=== PATIENT | female | born 1970 | race African-American/Black ===

== ENCOUNTER 2018-03-06 07:34 | Emergency (ER) | payer OTHER ==
[2018-03-06 07:49] VITALS: BP 142/72; PULSE 97; TEMP 98; BMI 34.8
--- NOTE | 2018-03-06 08:30 | PDOC ---
History of Present Illness - General Chief Complaint: Injury Stated Complaint: R KNEE INJURY Time Seen by Provider: 03/06/18 08:22 History Source: Patient Exam Limitations: Clinical Condition - History of Present Illness Initial Comments: 03/06/18 08:27 Patient with h/o HTN controlled with meds present with complains of right knee pain below right patella s/p hitting leg on bed post 2 days ago. pt report area is swollen and painful with ambulation. report take motrin which helped with the pain. Denies previous injury or trauma to area Timing/Duration: other (2 days ) Severity: moderate Modifying Factors: improves with: medication, rest. worse with: movement Associated Symptoms: reports: denies symptoms. denies: weakness Aspirin Received prior to arrival: Yes: no aspirin today Asa Contraindications(Core Measure): Yes: Allergy Past History - Past Medical History Allergies/Adverse Reactions: Allergies Allergy/AdvReac Type Severity Reaction Status Date / Time levofloxacin [From Levaquin] Allergy Verified 03/06/18 07:38 Home Medications: Ambulatory Orders Glucosamine/Chondroiti/Chiv358 [Cosamin Asu Capsule] 1 each PO DAILY #30 capsule 03/06/18 Leg Brace [Knee Brace] 1 each MC DAILY #1 each 03/06/18 Naproxen 500 mg PO BID PRN #20 tablet. 03/06/18 COPD: No HTN: Yes - Suicide/Smoking/Psychosocial Hx Smoking History: Never smoked Have you smoked in the past 12 months: No Information on smoking cessation initiated: No Hx Alcohol Use: No Drug/Substance Use Hx: No Substance Use Type: None Review of Systems - Review of Systems Able to Perform ROS?: Yes Is the patient limited Icelandic proficient: No Constitutional: No: Chills, Diaphoresis, Fever, Loss of Appetite, Malaise, Night Sweats, Weakness, Weight Stable, Unintentional Wgt. Loss, Unexplained wgt Loss, Other HEENTM: No: Eye Pain, Blurred Vision, Tearing, Recent change in vision, Double Vision, Cataracts, Ear Pain, Ocular Prothesis, Ear Discharge, Nose Pain, Nose Congestion, Tinnitus, Nose Bleeding, Hearing Loss, Throat Pain, Throat Swelling , Mouth Pain, Dental Problems, Difficulty Swallowing, Mouth Swelling, Other Respiratory: No: Cough, Orthopnea, Shortness of Breath, SOB with Exertion, SOB at Rest, Stridor, Wheezing, Productive cough, Hemoptysis, Other Cardiac (ROS): No: Chest Pain, Edema, Irregular Heart Rate, Lightheadedness, Palpitations, Syncope, Chest Tightness, Other ABD/GI: No: Abdominal Distended, Abd. Pain w/ defecation, Blood Streaked Bowels , Constipated, Diarrhea, Difficulty Swallowing, Nausea, Poor Appetite, Poor Fluid Intake, Rectal Bleeding, Vomiting, Indigestion, Abdominal cramping, Tarry Stools, Other : No: Burning, Dysuria, Discharge, Frequency, Flank Pain, Hematuria, Incontinence, Pain, Urgency, Testicular Mass, Testicular Swelling, Lesions, Testicular Pain, Other Musculoskeletal: Yes: Joint Pain (right knee), Joint Swelling (right knee), Muscle Pain (right knee). No: Back Pain, Muscle Weakness, Joint Stiffness Integumentary: No: Bruising, Change in Color, Change in Hair/Nails, Dryness, Erythema, Flushing, Lesions, Lumps, Pallor, Pruritus, Rash, Sweating, Other Neurological: No: Headache, Numbness, Paresthesia, Pre-Existing Deficit, Seizure , Tingling, Tremors, Weakness, Unsteady Gait, Ataxia, Dizziness, Other Psychiatric: No: Anxiety, Depression, Frequent Crying, Stressors, Sleep Pattern Change, Emotional Problems, Mood Swings, Change in Appetite, Other Hematologic/Lymphatic: No: Anemia, Blood Clots, Easy Bleeding, Easy Bruising, Bleeding Diathesis, Lymph Node Abnormalities, Swollen Glands, Other All Other Systems: Reviewed and Negative *Physical Exam - Vital Signs Last Vital Signs Temp Pulse Resp BP Pulse Ox 98.0 F 97 H 18 142/72 100 03/06/18 07:39 03/06/18 07:39 03/06/18 07:39 03/06/18 07:39 03/06/18 07:39 - Physical Exam General Appearance: Yes: Nourished, Appropriately Dressed. No: Apparent Distress HEENT: positive: TYLER, Normal ENT Inspection, TMs Normal, Pharynx Normal Neck: positive: Trachea midline, Normal Thyroid, Supple Respiratory/Chest: positive: Lungs Clear, Normal Breath Sounds. negative: Respiratory Distress, Accessory Muscle Use Cardiovascular: positive: Regular Rhythm, Regular Rate, S1, S2 Musculoskeletal: positive: Other (mild swelling to lateral side of infra- patella region. moderate tenderness to lateral side of infrapatella region. FROM of right knee. negative anterior/ posterior draw murtaza of right knee) Extremity: positive: Normal Capillary Refill, Tender (moderate tenderness over lateral side of infra-patella region of right knee ), Swelling (mild swelling to lateral infra-patella region) Integumentary: positive: Swelling (mild swelling to lateral side of infra- patella region). negative: Erythema, Bruising Neurologic: positive: Fully Oriented, Alert, Normal Mood/Affect, Normal Response , Motor Strength 12/22 ED Treatment Course - RADIOLOGY Radiology Studies Ordered: Category Date Time Status KNEE 3 POS-RIGHT [RAD] Stat Radiology 03/06/18 08:26 Ordered Medical Decision Making - Medical Decision Making 03/06/18 08:52 Patient with pain and swelling to right knee s/p contusion. symptoms likely knee contusion with swelling. x-ray ordered to r/o fracture or dislocation. treat based on imaging results 03/06/18 09:29 x-ray of right knee shows no acute fracture or dislocation. x-ray shows severe arthritis of right knee. pt stable for home d/c with orthopedics follow-up *DC/Admit/Observation/Transfer Diagnosis at time of Disposition: Knee pain, right anterior, Arthritis of knee, right Contusion of knee, right Qualifiers: Encounter type: initial encounter Qualified Code(s): S80.01XA - Contusion of right knee, initial encounter - Discharge Dispostion Disposition: HOME Condition at time of disposition: Stable Decision to Admit order: No - Prescriptions Prescriptions: Glucosamine/Chondroiti/[id number] [Cosamin Asu Capsule] 1 each PO DAILY #30 capsule Leg Brace [Knee Brace] 1 each MC DAILY #1 each Naproxen 500 mg PO BID PRN #20 tablet.dr COLLINS Reason: knee pain - Referrals Referrals: Kermit Diaz MD [Staff Physician] - - Patient Instructions Additional Instructions: take medication as prescribed. rest knee and keep knee elevated. apply heat therapy to right knee twice/ day for 10mins. follow-up with orthopedics - Post Discharge Activity Forms/Work/School Notes: Back to Work
== END 2018-03-06 09:41 | disposition home or self-care (01) ==
LOC: JERFT 07:34 → JER 07:34 → JERFT 09:41
DX: S80.01XA Contusion of right knee, initial encounter (principal); M13.861 Other specified arthritis, right knee; W22.03XA Walked into furniture, initial encounter; Y93.01 Activity, walking, marching and hiking; Y92.013 Bedroom of single-family (private) house as the place of occurrence of the external cause; Y99.8 Other external cause status; I10 Essential (primary) hypertension
CPT/HCPCS: 73562-TC-RT-FY; 84703; 99281-25